=== PATIENT | male | born 1945 | race Caucasian/White ===

== ENCOUNTER 2020-09-21 04:07 | Emergency (ER) | payer MEDICARE, OTHER ==
[~2020-09-21] VITALS: Ht 167.6 cm; Wt 68.3 kg
[2020-09-21] MEDS ORDERED: HYDROcodone/APAP 5/325MG 1 TAB TABLET PO ONE (05:00)
--- NOTE | 2020-09-21 05:05 | PHYS DOC ---
Past History Additional Past Medical Histor: Polio, Prostate CA, bladder CA, legally blind, hiatal hernia Past Surgical History: Other Adult General Chief Complaint Chief Complaint: URINARY RETENTION HPI HPI Patient is a 75-year-old male with a past medical history significant for prostate and bladder cancer who finished chemotherapy about a week ago and is due to follow-up with his cancer primary care physician this for a follow-up visit and follow-up imaging who presents to the emergency department with a chief complaint of urinary retention. States that he feels like he has to urinate but has not been able to since last night. States this has happened to him before but it has been sometime ago. Denies any recent traumas, illnesses, fevers, chest pain, shortness of breath, abdominal pain, nausea, vomiting, diarrhea, dysuria, hematuria or blood in the stool. States he is having some discomfort around his bladder but did not take his pain pills that he has at home tonight. States is about 4 out of 10, dull and achy in nature. Review of Systems Review of Systems Constitutional: Denies fever or chills [] Eyes: Denies change in visual acuity, redness, or eye pain [] HENT: Denies nasal congestion or sore throat [] Respiratory: Denies cough or shortness of breath [] Cardiovascular: No additional information not addressed in HPI [] GI: Denies abdominal pain, nausea, vomiting, bloody stools or diarrhea [] : Denies dysuria or hematuria [] Musculoskeletal: Denies back pain or joint pain [] Integument: Denies rash or skin lesions [] Neurologic: Denies headache, focal weakness or sensory changes [] Endocrine: Denies polyuria or polydipsia [] All other systems were reviewed and found to be within normal limits, except as documented in this note. Current Medications Current Medications Current Medications Medications (Trade) Dose Ordered Sig/Saw Start Time Stop Time Status Last Admin Dose Admin Acetaminophen/ Hydrocodone Bitart (Lortab 5/325) 2 tab 1X ONCE 09/21/20 05:00 09/21/20 05:01 Allergies Allergies Allergies Coded Allergies Type Severity Reaction Last Updated Verified Penicillins Allergy Intermediate 09/21/20 Yes Physical Exam Physical Exam Constitutional: Well developed, well nourished, no acute distress, non-toxic appearance. [] HENT: Normocephalic, atraumatic, Eyes: conjunctiva normal, no discharge. [] Cardiovascular:Heart rate regular rhythm, no murmur [] Lungs & Thorax: Bilateral breath sounds clear to auscultation [] Abdomen: soft, mild suprapubic tenderness, no masses, no pulsatile masses. [] Skin: Warm, dry, no erythema, no rash. [] Back:no CVA tenderness. [] Extremities: No tenderness, ROM intact, no edema. [] Neurologic: Alert and oriented X 3, no focal deficits noted. [] Psychologic: Affect normal, judgement normal, mood normal. [] Current Patient Data Vital Signs Vital Signs Date Time Temp Pulse Resp B/P (MAP) Pulse Ox O2 Delivery O2 Flow Rate FiO2 09/21/20 04:17 98.4 76 18 148/98 99 Room Air EKG EKG [] Radiology/Procedures Radiology/Procedures [] Heart Score C/O Chest Pain: No Risk Factors: Risk Factors: DM, Current or recent (<one month) smoker, HTN, HLP, family history of CAD, obesity. Risk Scores: Risk Factors: DM, Current or recent (<one month) smoker, HTN, HLP, family history of CAD, obesity. Course & Med Decision Making Course & Med Decision Making Patient is a 75-year-old male with a history of prostate and bladder cancer status post chemotherapy who presents with urinary retention Vital signs not concerning. Physical exam noted above. No lesions, deformities or tenderness on the penis or scrotum. Maher catheter with bag placed for home use. Given oral pain medicine. Urinalysis not suggestive of urinary tract infection. Discussed all findings with patient and family and advised to follow-up this morning with both PCP and cancer doctor to update. Gave return precautions to the ED. Family grateful, verbalized understanding and agreed with plan of discharge. [] Dragon Disclaimer Dragon Disclaimer This electronic medical record was generated, in whole or in part, using a voice recognition dictation system. Departure Departure: Disposition: HOME / SELF CARE / HOMELESS Condition: STABLE Referrals: JAVED DOTSON MD (PCP) Patient Instructions: Urinary Retention, Acute, Male Additional Instructions: Thank you for coming into the emergency department tonight and allowing us to take care of you. Please read all of the attached information very carefully to go back over what we discussed. A urinary catheter was placed for you that has a bag that you can empty as discussed and demonstrated. It is very important that you contact both your primary care physician and your cancer doctor first thing this morning to update them on your emergency department visit and new indwelling urinary catheter and set up follow-up appointments as soon as possible, today would be best for reevaluation. As discussed please come back to the emergency department immediately with new or concerning symptoms. RAJESH SMITH MD Sep 21, 2020 05:05
[2020-09-21 05:15] LABS: BILIRUBIN,URINE NEG (NEG); CLARITY,URINE CLEAR; COLOR,URINE YELLOW; GLUCOSE,URINE NEG (NEG); NITRITE,URINE NEG (NEG)
[2020-09-21 05:16] LABS: BACTERIA,URINE FEW /HPF (0-FEW); SQUAMOUS EPITHELIAL CELL,UR OCC /LPF
[2020-09-21 05:34] VITALS: BP 146/88
== END 2020-09-21 05:45 | disposition home or self-care (01) ==
LOC: ER 04:07
DX: R33.9 Retention of urine, unspecified (principal); Z88.0 Allergy status to penicillin
CPT/HCPCS: 51702; 81001; 87086; 99284